=== PATIENT | female | born 1960 | race African-American/Black ===

== ENCOUNTER 2017-07-12 15:41 | Outpatient (CLI) | payer OTHER | END 2017-07-12 19:15 | disposition home or self-care (01) | LOC: MAMMO 15:41 | DX: Z12.31 Encounter for screening mammogram for malignant neoplasm of breast (principal) ==

== ENCOUNTER 2018-07-15 10:05 | Outpatient (CLI) | payer OTHER | END 2018-07-15 22:52 | disposition home or self-care (01) | LOC: MAMMO 10:05 | DX: Z12.31 Encounter for screening mammogram for malignant neoplasm of breast (principal) ==

== ENCOUNTER 2021-07-15 13:07 | Outpatient (CLI) | payer OTHER | END 2021-07-15 20:50 | disposition home or self-care (01) | LOC: MAMMO 13:07 | PROVIDERS: ATTEND Family Medicine | DX: Z12.31 Encounter for screening mammogram for malignant neoplasm of breast (principal) ==

== ENCOUNTER 2022-09-07 11:17 | Outpatient (CLI) | payer OTHER | END 2022-09-07 21:43 | disposition home or self-care (01) | LOC: RESP 11:17 | PROVIDERS: ATTEND Nurse Practitioner Family | DX: R60.0 Localized edema (principal) | CPT/HCPCS: 93005 ==

== ENCOUNTER 2022-11-15 10:01 | Outpatient (CLI) | payer OTHER | END 2022-11-15 19:40 | disposition home or self-care (01) | LOC: RAD 10:01 | PROVIDERS: ATTEND Nurse Practitioner Family | DX: M54.17 Radiculopathy, lumbosacral region (principal) ==